=== PATIENT | male | born 1975 | race Two or more races ===

== ENCOUNTER 2021-01-06 18:53 | Emergency (ER) | payer OTHER ==
[~2021-01-06] VITALS: Ht 177.8 cm; Wt 86.2 kg
== END 2021-01-06 21:30 | disposition home or self-care (01) ==
LOC: ER 18:53
DX: M79.621 Pain in right upper arm (principal); M19.011 Primary osteoarthritis, right shoulder

== ENCOUNTER 2021-04-26 08:00 | Outpatient (CLI) | payer OTHER | END 2021-04-26 08:30 | disposition home or self-care (01) | LOC: PPH VACUNA 08:00 | PROVIDERS: ATTEND Emergency Medicine Pediatric Emergency Medicine | DX: Z23 Encounter for immunization (principal) ==

== ENCOUNTER 2021-06-15 08:00 | Outpatient (CLI) | payer OTHER | END 2021-06-15 08:30 | disposition home or self-care (01) | LOC: PPH VACUNA 08:00 | PROVIDERS: ATTEND Emergency Medicine Pediatric Emergency Medicine | DX: Z23 Encounter for immunization (principal) ==

== ENCOUNTER 2021-12-17 22:45 | Emergency (ER) | payer OTHER ==
[~2021-12-17] VITALS: Ht 180.3 cm; Wt 88.5 kg
== END 2021-12-17 23:26 | disposition home or self-care (01) ==
LOC: ER 22:45
DX: H00.025 Hordeolum internum left lower eyelid (principal)

== ENCOUNTER 2022-01-02 07:29 | Outpatient (CLI) | payer OTHER | END 2022-01-02 09:09 | disposition home or self-care (01) | LOC: LAB 07:29 | PROVIDERS: ATTEND Preventive Medicine Occupational Medicine | DX: Z20.822 Contact with and (suspected) exposure to COVID-19 (principal) ==

== ENCOUNTER 2022-05-03 08:00 | Outpatient (CLI) | payer OTHER | END 2022-05-03 08:05 | disposition home or self-care (01) | LOC: PPH VACUNA 08:00 | PROVIDERS: ATTEND Emergency Medicine Pediatric Emergency Medicine | DX: Z23 Encounter for immunization (principal) ==

== ENCOUNTER → 2022-09-02 | Emergency (ER) | payer OTHER ==
[~2022-09-02] VITALS: Ht 177.8 cm; Wt 81.6 kg
== END | disposition home or self-care (01) ==
LOC: ER 06:49
DX: H10.32 Unspecified acute conjunctivitis, left eye (principal)

== ENCOUNTER 2022-11-25 21:08 | Emergency (ER) | payer OTHER ==
[~2022-11-25] VITALS: Ht 177.8 cm; Wt 80.7 kg
== END 2022-11-26 05:06 | disposition home or self-care (01) ==
LOC: ER 21:08
DX: R53.81 Other malaise (principal); G44.209 Tension-type headache, unspecified, not intractable

== ENCOUNTER → 2023-03-27 | Outpatient (CLI) | payer OTHER ==
[~2023-03-27] MED LIST: BACTRIM DS TAB1 EACH PO
== END | disposition home or self-care (01) ==
LOC: PPH VACUNA
PROVIDERS: ATTEND Emergency Medicine Pediatric Emergency Medicine
DX: Z23 Encounter for immunization (principal)

== ENCOUNTER 2023-04-07 09:35 | Emergency (ER) | payer OTHER ==
[~2023-04-07] VITALS: Ht 177.8 cm; Wt 72.6 kg
[2023-04-07] MEDS ORDERED: BACTRIM DS TAB1 EACH PO (11:40)
== END 2023-04-07 12:23 | disposition home or self-care (01) ==
LOC: ER 09:35
PROVIDERS: General Practice
DX: N39.0 Urinary tract infection, site not specified (principal)

== ENCOUNTER 2023-05-28 15:45 | Emergency (ER) | payer OTHER ==
[~2023-05-28] VITALS: Ht 177.8 cm; Wt 77.1 kg
== END 2023-05-28 17:25 | disposition home or self-care (01) ==
LOC: ER 15:45
DX: K05.10 Chronic gingivitis, plaque induced (principal); K08.89 Other specified disorders of teeth and supporting structures

== ENCOUNTER 2024-05-25 04:00 | Outpatient (CLI) | payer OTHER | END 2024-05-25 04:15 | disposition home or self-care (01) | LOC: PPH VACUNA 04:00 | PROVIDERS: ATTEND Emergency Medicine Pediatric Emergency Medicine | DX: Z23 Encounter for immunization (principal) ==

== ENCOUNTER 2025-04-13 10:09 | Emergency (ER) | payer OTHER ==
[~2025-04-13] VITALS: Ht 177.8 cm; Wt 83.9 kg
[2025-04-13 10:49] VITALS: BP 122/76; O2SAT 97
[2025-04-13 12:37] LABS: BASO % 0.7 % (0.1-1.2); EOS # 0.29 (0.04-0.54); EOS % 2.8 % (0.7-7.0); LYMPH # 3.25 (1.18-3.74); LYMPH % 31.4 % (19.3-53.1); MEAN PLATELET VOLUME 11.00 fl (9.4-12.4); MONO # 1.13 (0.24-0.82); MONO % 10.9 % (4.7-12.5); NEUT # 5.57 (1.56-6.13); NEUT % 53.9 % (34.0-71.1); RED CELL DISTRIBUTION WIDTH 14.6 % (11.6-14.4)
[2025-04-13 12:53] LABS: ERYTHROCYTE SEDIMENTATION RATE 25 mm/hr (0-20)
== END 2025-04-13 22:26 | disposition home or self-care (01) ==
LOC: ER 10:09
PROVIDERS: General Practice
DX: M79.641 Pain in right hand (principal); L03.113 Cellulitis of right upper limb

== ENCOUNTER 2025-04-25 11:35 | Emergency (ER) | payer OTHER ==
[~2025-04-25] VITALS: Ht 180.3 cm; Wt 83.9 kg
[2025-04-25] MEDS ORDERED: KETOROLAC TROMETHAMINE 30 MG VIAL IM ONE (14:30)
[2025-04-25] MEDS ORDERED: DEXAMETHASONE SODIUM PHOSPHATE 4 MG/ML VIAL IM ONE (14:30)
[2025-04-25] MEDS ORDERED: DEXAMETHASONE SODIUM PHOSPHATE 4 MG/ML VIAL ONE (14:56)
[2025-04-25] MEDS ORDERED: KETOROLAC TROMETHAMINE 30 MG VIAL ONE (14:56)
[2025-04-25] MEDS ORDERED: NEURONTIN300 MG PO (15:47)
[2025-04-25] MEDS ORDERED: DICLOFENAC SODI50 MG PO (15:47)
[2025-04-25] MEDS ORDERED: NORFLEX100MG PO (15:47)
== END 2025-04-25 16:44 | disposition home or self-care (01) ==
LOC: ER 11:36
DX: M54.16 Radiculopathy, lumbar region (principal)

== ENCOUNTER 2025-05-26 15:00 | Outpatient (CLI) | payer OTHER ==
[~2025-05-26 15:00] MED LIST changes: +DICLOFENAC SODI50 MG PO; +NEURONTIN300 MG PO; +NORFLEX100MG PO
== END 2025-05-26 15:10 | disposition home or self-care (01) ==
LOC: PPH VACUNA 15:00
PROVIDERS: ATTEND Emergency Medicine Pediatric Emergency Medicine
DX: Z23 Encounter for immunization (principal)